=== PATIENT | male | born 1965 ===

== ENCOUNTER 2017-07-19 16:28 | Emergency (ER) | payer MEDICAID ==
[2017-07-19 16:28] VITALS: BMI 29.1
[2017-07-19] MEDS ORDERED: Sodium Chloride 0.9% 1,000 ML IV ONE (17:40)
[2017-07-19 18:03] LABS: BASO # 0.1 K/uL (0.0-0.2); BASO % 1.1 % (0.0-2.0); EOS # 0.4 K/uL (0.0-0.7); EOS % 4.3 % (0.0-4.0); HEMOGLOBIN 15.5 g/dL (12.0-18.0); LYMPH % 21.5 % (20.0-40.0); MEAN CELL VOLUME 88.7 fL (80.0-94.0); MEAN CORPUSCULAR HEMOGLOBIN 31.7 pg (27.0-31.0); MEAN CORPUSCULAR HGB CONC 35.8 g/dL (33.0-37.0); MEAN PLATELET VOLUME 8.4 fL (7.2-11.7); MONO # 0.8 K/uL (0.0-0.8); MONO % 8.3 % (0.0-10.0); NEUT % 64.8 % (50.0-75.0); NRBC % 0.2 % (0.0-2.0); RBC 4.88 Mil/uL (4.40-5.90); RED CELL DISTRIBUTION WIDTH 13.4 % (11.5-14.5); WHITE BLOOD COUNT 9.2 K/uL (4.8-10.8)
[2017-07-19 18:14] LABS: PROTHROMBIN TIME 10.7 SECONDS (9.7-12.2)
[2017-07-19] MEDS ORDERED: Sodium Chloride 0.9% 1,000 ML ONE (18:14)
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
[2017-07-19 18:23] LABS: ALB/GLOB RATIO 1.2 (1.0-2.1); ALBUMIN 4.1 g/dL (3.5-5.0); ALT/SGPT 44 U/L (21-72); AST/SGOT 41 U/L (17-59); BLOOD UREA NITROGEN 22 mg/dL (9-20); CALCIUM 9.4 mg/dl (8.6-10.4); GFR AFRICAN-AMERICAN > 60; GFR NON-AFRICAN AMERICAN > 60
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
[2017-07-19 19:34] VITALS: BP 118/71; PULSE 79; RESP 18; TEMP 97.7; O2SAT 97
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
== END 2017-07-19 20:07 | disposition home or self-care (01) ==
LOC: C.ER 16:28
DX: S09.90XA Unspecified injury of head, initial encounter (principal); V49.40XA Driver injured in collision with unspecified motor vehicles in traffic accident, initial encounter
CPT/HCPCS: 70450; 72125; 80053; 80320; 85025; 85610; 85730; 96361; 96374; 96375; 99285; J1885; J2765; J7030

== ENCOUNTER 2017-11-13 06:32 | Emergency (ER) | payer MEDICAID ==
[2017-11-13 06:32] VITALS: BMI 29.1
[2017-11-13 06:55] VITALS: TEMP 98.1
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
[2017-11-13] MEDS ORDERED: Ketamine 50 mg/ml Inj (10 ml) IV STA (07:58)
[2017-11-13] MEDS ORDERED: Midazolam 2 MG/2 ML VIAL IVP STA (07:58)
[2017-11-13] MEDS ORDERED: Morphine 4 MG/ML VIAL ONE (08:15)
[2017-11-13] MEDS ORDERED: Midazolam 2 MG/2 ML VIAL ONE (08:15)
[2017-11-13 09:55] VITALS: BP 133/88; PULSE 94; RESP 12
--- NOTE | 2017-11-13 13:07 | RAD ---
Date of service: 11/13/2017 PROCEDURE: Radiographs of the Right Shoulder HISTORY: post reduction COMPARISON: . Comparison made with earlier film same day. FINDINGS: BONES: Interval reduction previously noted anterior inferior dislocation right humeral head with respect to the glenoid. 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 SOFT TISSUES: Normal. OTHER FINDINGS: None. IMPRESSION: Interval reduction previously noted anterior inferior dislocation right humeral head with respect to the glenoid.
--- NOTE | 2017-11-13 13:08 | RAD ---
Date of service: The 11/13/2017 PROCEDURE: Right Wrist Radiographs. HISTORY: wrist pain, fall COMPARISON: None. FINDINGS: BONES: Normal. No fracture. JOINTS: Normal. No dislocation. SOFT TISSUES: Normal. OTHER FINDINGS: None. IMPRESSION: Normal right wrist radiographs.
--- NOTE | 2017-11-13 13:12 | RAD ---
Date of service: 11/13/2017 PROCEDURE: Radiographs of the Right Shoulder HISTORY: shoulder pain, fall COMPARISON: No prior. FINDINGS: BONES: No evidence of acute displaced fracture JOINTS: Anterior inferior dislocation of the right humeral head with respect to glenoid. 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 SOFT TISSUES: Normal. OTHER FINDINGS: None. IMPRESSION: Anterior inferior dislocation of the right humeral head with respect to glenoid. 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
--- NOTE | 2017-11-13 13:14 | RAD ---
Date of service: The the 11/13/2017 PROCEDURE: Radiographs of the right elbow. HISTORY: fall, arm injury COMPARISON: No prior. FINDINGS: Limited two-view exam the right elbow BONES: Normal. No fracture. JOINTS: Normal. No osteoarthritis. SOFT TISSUES: Normal. JOINT EFFUSION: None. OTHER FINDINGS: None. IMPRESSION: Limited study demonstrating no definite evidence of acute displaced fracture nor dislocation. If symptoms persist or occult fracture suspected clinically consider repeat radiographs in 7-10 days as most fractures should become radiographically evident in this timeframe. Alternately, consider
[2017-11-13 13:29] VITALS: O2SAT 96
== END 2017-11-13 10:14 | disposition home or self-care (01) ==
LOC: C.ER 06:32
DX: S43.034A Inferior dislocation of right humerus, initial encounter (principal)
CPT/HCPCS: 23650; 73030; 73080; 73110; 82948; 96374; 96375; 99285; J2250; J2270